=== PATIENT | male | born 1960 | race Hispanic/Latino ===

== ENCOUNTER 2016-10-01 17:27 | Emergency (ER) | payer OTHER ==
[~2016-10-01] VITALS: Ht 180.3 cm; Wt 81.6 kg
--- NOTE | 2016-10-01 17:34 | NUR ---
ARRIVAL PT ARRIVED AMBULATORY TO ER 4 C/O BILATERAL KNEE PAIN FOR "YEARS", WORSENING OVER PAST 2 WEEKS. NO ACUTE DISTRESS NOTED. EDP NOTIFIED OF PT ARRIVAL.
--- NOTE | 2016-10-01 18:16 | ER.PDOC ---
General Chief Complaint: bilateral knee pain-chronic Stated Complaint: EXTREMITIES Time seen by MD: 18:00 Source: patient History of Present Illness Where: home Severity: mild Allergies: Coded Allergies: No Known Allergies (Unverified , 10/01/16) Home Meds No Active Prescriptions or Reported Meds Past Medical History Medical History: no pertinent history Surgical History: no surgical history Social History Smoking: non-smoker Alcohol Use: none Drug Use: none Review of Systems All Other Systems: Reviewed and Negative Physical Exam General Appearance: Alert, No Apparent Distress Knee: tenderness, swelling, joint effusion (L KNEE) Thigh/Hip: nml inspection Gait: normal Neuro/Vasc/Tendon: sensation nml, motor nml, no vascular compromise, tendon function nml Skin: warm/dry Head/ENT: nml inspection, pharynx nml Neck/Back: nml inspection, non-tender Departure Time of Disposition: 18:33 Disposition: 01 HOME, SELF-CARE Impression: Primary Impression: Arthritis Referrals: PCP,UNKNOWN (PCP) PRIMARY CARE PROVIDER Scripts No Active Prescriptions or Reported Meds SHIRA MISTRY MD Oct 01, 2016 18:16
--- NOTE | 2016-10-01 18:39 | DIREP ---
PROCEDURE:XRAY KNEE 1-2 VWS-LT COMPARISON:None. INDICATIONS:EFFUSION L KNEE left knee FINDINGS: BONES:Normal. JOINTS:Normal, except for mild degenerative arthritis. SOFT TISSUES:Normal, except for a small suprapatellar joint effusion. OTHER:No additional findings. CONCLUSION:No fracture or subluxation. Dictated by: Jonathan Hanley M.D. on 10/01/2016 at 06:38 PM
[2016-10-01 18:53] VITALS: BP 128/96
== END 2016-10-01 18:50 | disposition home or self-care (01) ==
LOC: ER 17:27
DX: M17.0 Bilateral primary osteoarthritis of knee (principal)
CPT/HCPCS: 99284; 73560-LT